=== PATIENT | female | born 1950 | race Caucasian/White ===

== ENCOUNTER 2024-04-01 10:54 | Emergency (ER) | payer MEDICARE, OTHER, SELFPAY ==
[2024-04-01 11:04] VITALS: BP 153/61
--- NOTE | 2024-04-01 11:54 | ED.GENMED ---
History of Present Illness
General
Chief Complaint: DVT/Possible Blood Clot
Source: patient
Exam Limitations: none
Time Seen by Provider: 04/01/24 11:21
Nursing documentation reviewed up to this point in time: agreed with
History of Present Illness
History of Present Illness:
Patient is a 73-year-old female presents to the emergency department complaining of left lower extremity swelling. Patient has had issues with her left ankle since college but noticed it was swollen this week. Patient denies any difficulty walking
or pain. Friends of hers noticed the swelling also. Patient went to see her foot and ankle physician who examined her yesterday and suggested she get an ultrasound for DVT this morning. Patient was felt to have a swollen calf. Patient denies any
history of PE or DVT. Patient denies chest pain or shortness of breath. Patient denies fever or chills. Patient denies any recent long trips. Patient has any risk factors for PE or DVT
Past History
Past History
ED Past Medical History: None
ED Past Surgical History: Orthopedic (Right hip replacement with anterior approach)
Social History
Drug: None
Review of Systems
Review of Systems
All Other Systems: ROS reviewed and negative except as documented in HPI and ROS
Constitutional: Reports no symptoms
EENT: Reports no symptoms
Respiratory: Reports no symptoms
Cardiac: Reports no symptoms
ABD/GI: Reports no symptoms
: Reports no symptoms
Musculoskeletal: Reports joint swelling and edema
Skin: Reports no symptoms
Neurological: Reports no symptoms
Hematologic/Lymphatic: Reports no symptoms
Phy Exam
Physical Exam
Physical Exam:
Physical Exam
General: No apparent distress, alert and appropriate, well nourished, well hydrated
HENT: Normocephalic, supple with no lymphadenopathy, no thyromegaly
Eyes: Clear sclera, conjuctiva without injection
Heart: Regular rhythm and rate. No S3, S4. No murmur. No NVD, bruit
Lungs: No respiratory distress, no stridor, lung sounds clear and equal bilaterally
Abdomen: Soft, nontender
Neuro: Alert and oriented x 3, CN II - XII intact, no motor focality, no cerebellar dysfunction
Skin: no rash
Psychiatric: well kept. interactive and cooperative
Extremities: No cyanosis, tenderness, Good and equal peripheral pulses. Lower leg diffusely swollen without erythema. Left ankle without tenderness or instability but diffusely swollen more laterally.
Course
Orders/Labs/Results
Orders:
Orders
04/01/24 11:35
Ankle, left 3 view CR [CR Ankle - Left Min 3 Views ] Urgent
Comment:
Reason For Exam: swelling
04/01/24 11:36
US Periph Venous LOWER Ext LT Urgent
Comment:
Reason For Exam: swollen leg
Vital Signs
Initial and Last Documented VS:
Initial Vital Signs
Temp Pulse Resp BP Pulse Ox
98 F 80 16 153/61 98
04/01/24 11:04 04/01/24 11:04 04/01/24 11:04 04/01/24 11:04 04/01/24 11:04
Last Documented Vital Signs
Temp Pulse Resp BP Pulse Ox
98 F 82 17 146/73 98
04/01/24 11:04 04/01/24 13:20 04/01/24 13:20 04/01/24 13:20 04/01/24 13:20
*Radiology
Radiology exam reviewed: radiology read reviewed (no dvt)
*Pulse Oximetry
Patient hypoxic: no
*EKG
Interpreted by ED Provider?: NA
*Bung Sewer Interpretation
Rate: Bung Sewer- N/A
*Critical Care Note
Total Time (30-74mins, 75-104mins- exclusive of procedures): Not Applicable
ED Attending Note
-
Portions of this chart may have been created with voice recognition software.� Occasional wrong word or��sound alike� substitutions may have occurred due to the inherent limitations of voice recognition software.
Discharge Plan
Departure
Patient Disposition: Home (Routine Discharge)
Date of Disposition: 04/01/24
Time of Disposition: 14:06
Patient with high blood pressure during this ER visit?: No
Condition: Good
Covid-19: Not Applicable
Discharge Problem:
Edema of left lower extremity, Degenerative arthritis of left ankle
Instructions: Swelling
Prescriptions:
No Action
cephalexin 500 MG capsule
500 mg PO TID Qty: 21 0RF
Referrals:
Darryl Mccord MD [Family Provider] - Follow up in 5-7 days
Activity Restrictions/Additional Instructions:
Try to keep your ankle above your knee and your knee above your hip when sitting down or resting. Use a compression stocking to the left lower leg. Any increasing pain, swelling or fever please return.
Discharge Date and Time
Print Language: IRISH
[2024-04-01 13:20] VITALS: BP 146/73
== END 2024-04-01 14:10 | disposition home or self-care (01) ==
LOC: EMR 10:54
PROVIDERS: EMERGENCY PHYSICIAN Emergency Medicine; FAMILY PHYSICIAN Internal Medicine
DX: R60.0 Localized edema (principal); M19.072 Primary osteoarthritis, left ankle and foot
CPT/HCPCS: 99284; 73610; 93971